=== PATIENT | female | born 1990 | race Hispanic/Latino ===

== ENCOUNTER 2023-02-06 08:10 | Emergency (ER) | payer BC, OTHER ==
[~2023-02-06] VITALS: Ht 167.6 cm; Wt 117.9 kg
[2023-02-06 08:45] LABS: APPEARANCE,URINE TURBID (CLEAR); BILIRUBIN,URINE NEGATIVE (NEGATIVE); COLOR,URINE YELLOW (YELLOW); GLUCOSE, URINE (UA) 30 mg/dL (NEGATIVE); KETONES,URINE NEGATIVE (NEGATIVE); LEUKOCYTE ESTERASE ,URINE 500 Leu/uL (NEGATIVE); NITRATE,URINE NEGATIVE (NEGATIVE); OCCULT BLOOD,URINE MODERATE (NEGATIVE); PH,URINE 5.5 (5.0-8.0); PROTEIN,URINE 50 mg/dL (NEGATIVE); UROBILINOGEN,URINE 0.2 mg/dL (0.2-1.0)
[2023-02-06 08:48] LABS: HCG,QUALITATIVE URINE NEGATIVE (NEGATIVE)
[2023-02-06 08:50] LABS: BACTERIA,URINE MOD /HPF (None Seen); MUCUS,URINE RARE LPF (None Seen); SQUAMOUS EPITHELIAL CELL,UR MOD /HPF (0-2); WBC,URINE 51-100 /HPF (0-1)
[2023-02-06] MEDS ORDERED: NAPR500T6 PO (09:13)
[2023-02-06] MEDS ORDERED: CEPH500C2 PO (09:13)
[2023-02-06 09:34] VITALS: BP 134/68
== END 2023-02-06 09:37 | disposition home or self-care (01) ==
LOC: EDH 08:10
DX: M54.30 Sciatica, unspecified side (principal); N39.0 Urinary tract infection, site not specified; Z90.49 Acquired absence of other specified parts of digestive tract
CPT/HCPCS: 81001; 81025; 87077; 87088; 87186